=== PATIENT | male | born 1980 | race Caucasian/White ===

== ENCOUNTER 2021-03-19 02:59 | Emergency (ER) | payer SELFPAY ==
[~2021-03-19] VITALS: Ht 175.3 cm; Wt 97.0 kg
[2021-03-19] MEDS ORDERED: IBUPROFEN 600MG TABLET PO ONE (04:30)
[2021-03-19] MEDS ORDERED: LIDOCAINE HCL/EPINEPHRINE 1%-EPI 1:100,000 20 ML VIAL INFIL ONE (04:30)
[2021-03-19] MEDS ORDERED: BACITRACIN ZINC OINT UDPKT TOP ONE (04:45)
[2021-03-19] MEDS ORDERED: IBUP-2029 PO (04:59)
[2021-03-19 06:34] VITALS: BP 132/90
== END 2021-03-19 06:37 | disposition home or self-care (01) ==
LOC: ER 02:59
DX: S01.511A Laceration without foreign body of lip, initial encounter (principal); S50.312A Abrasion of left elbow, initial encounter; W22.8XXA Striking against or struck by other objects, initial encounter; Y93.89 Activity, other specified; Y92.89 Other specified places as the place of occurrence of the external cause; Y99.8 Other external cause status
CPT/HCPCS: 99283; J3490